=== PATIENT | male | born 1980 | race Two or more races ===

== ENCOUNTER 2022-07-08 20:30 | Emergency (ER) | payer MEDICAID, OTHER ==
[~2022-07-08] VITALS: Ht 180.3 cm; Wt 122.0 kg
[2022-07-08 21:54] LABS: Basophils # (auto) 0 10 ^3/uL (0-0.2); Basophils % (auto) 0.3 % (0.0-2.0); Eosinophils # (auto) 0 10 ^3/uL (0-0.8); Eosinophils % (auto) 0.3 % (0.0-7.0); Hemoglobin 12.5 g/dL (13.5-17.5); Lymphocytes # (auto) 1.5 10 ^3/uL (0.4-5.4); Mean Corpuscular Hemoglobin 26.1 pg (28.0-32.0); Mean Corpuscular Volume 81.5 fL (80.0-100.0); Monocytes # (auto) 0.6 10 ^3/uL (0-1.3); Monocytes % (auto) 4.4 % (0.0-12.0); Neutrophils # (auto) 11.7 10 ^3/uL (1.6-8.6); Red Blood Cells 4.79 10^6/uL (4.5-5.90); White Blood Cell 13.9 10^3/uL (4.4-10.8)
[2022-07-08 22:14] LABS: Potassium 3.5 mmol/L (3.5-5.1)
[2022-07-08] MEDS ORDERED: GLUCAGON HYDROCHLORIDE (RDNA) 1 MG VIAL IM ONE (22:15)
[2022-07-08] MEDS ORDERED: ALUM & MAG HYDROX-SIMETH LIQ(MAALOX) 30 ML PO ONE (22:15)
[2022-07-08 22:22] LABS: Albumin 3.7 g/dL (3.4-5.0); BUN/Creatinine Ratio 10.9; Bilirubin, Total 0.3 mg/dL (0.2-1.0); Calcium 8.6 mg/dL (8.5-10.1); Total Protein 8.1 g/dL (6.4-8.2)
[2022-07-09 02:06] VITALS: BP 138/84
== END 2022-07-09 02:06 | disposition home or self-care (01) ==
LOC: ER 20:37
DX: R13.10 Dysphagia, unspecified (principal); R06.02 Shortness of breath; F12.10 Cannabis abuse, uncomplicated
CPT/HCPCS: 36415; 71045; 80053; 83880; 84484; 85025; 93005; 96372; 99285; J1610